=== PATIENT | male | born 1970 | race Caucasian/White ===

== ENCOUNTER 2024-08-31 21:10 | Emergency (ER) | payer MEDICAID ==
[~2024-08-31] VITALS: Ht 172.7 cm; Wt 84.1 kg
[2024-08-31 22:29] VITALS: BP 145/88; PULSE 89; RESP 20; TEMP 98.3; O2SAT 95
[2024-09-01 02:43] LABS: PLATELET COUNT (AUTO) 132 K/uL (150-450); RED BLOOD CELL COUNT(AUTO) 3.45 MIL/uL (4.50-5.90); RED CELL DISTRIBUTION WIDTH 17.1 % (11.5-14.5); WHITE BLOOD COUNT (AUTO) 5.0 K/uL (4.5-11.0)
[2024-09-01 02:54] LABS: CALCIUM, TOTAL 8.6 mg/dL (8.8-10.5); CREATININE 1.19 mg/dL (0.60-1.30); GLOMERULAR FILTR. RATE CALC > 60 mL/min (>60); GLUCOSE,RANDOM 108 mg/dL (70-110); SODIUM SERUM 132 mmol/L (136-145); UREA NITROGEN, BLOOD 20 mg/dL (7-18)
[2024-09-01 03:04] LABS: TROPONIN I-HIGH SENSITIVITY 70 ng/L (<76)
[2024-09-01 03:09] LABS: ASPARTATE AMINOTRANSFERASE 26.0 U/L (15-37); CREATINE KINASE, TOTAL ONLY 36.0 U/L (39-308); TOTAL PROTEIN, SERUM 7.2 g/dL (6.4-8.2)
[2024-09-01] MEDS ORDERED: HYDR25TA2 PO (03:24)
[2024-09-01] MEDS ORDERED: TRAM50TA5 PO (03:24)
[2024-09-01] MEDS: ACETAMINOPHEN 500 MG TABLET PO ONE (03:52)
[2024-09-05] MEDS ORDERED: SULF-261 PO (08:34)
== END 2024-09-01 06:26 | disposition home or self-care (01) ==
LOC: EMS 21:10
DX: R60.0 Localized edema (principal); R06.02 Shortness of breath; Z79.899 Other long term (current) drug therapy
CPT/HCPCS: 71045; 80048; 80076; 82550; 83880; 84484; 85025; 85610; 85730; 93005; 99285; 36415-L1; 36415-TC